=== PATIENT | female | born 2000 | race Caucasian/White ===

== ENCOUNTER 2020-04-07 00:20 | Emergency (ER) | payer OTHER ==
[2020-04-07 00:28] VITALS: TEMP 98.9
[2020-04-07] MEDS ORDERED: ONDANSETRON 4 MG/2 ML VIAL IVP STA (00:50)
[2020-04-07] MEDS ORDERED: SODIUM CHLORIDE 0.9% 1,000 ML IV ONE (00:50)
[2020-04-07] MEDS ORDERED: KETOROLAC 15 MG/ML 1 ML VIAL IVP STA (00:50)
--- NOTE | 2020-04-07 01:27 | US ---
EXAM: US Pelvis Transabdominal and Transvaginal, Complete and US Duplex Arterial/Venous of the Pelvis, Complete CLINICAL HISTORY: ITS.REASON US Reason: Left pelvic pain; IUD TECHNIQUE: Real-time complete transabdominal and transvaginal pelvic ultrasound with image documentation. Transvaginal imaging was used for better evaluation of the endometrium and adnexa. Real-time duplex ultrasound scan of the arterial and venous flow of the pelvis with color Doppler flow and spectral waveform analysis. COMPARISON: No relevant prior studies available. FINDINGS: Uterus/cervix: There is an IUD within the uterus. The endometrial stripe is normal measuring 2 mm. The uterus measures 7 x 3.4 x 3.6 cm, 44.8 mL No myometrial mass. Right ovary: The right ovary measures 2.2 x 1.5 x 1.8 cm, 3 mL. Doppler blood flow is normal. There is a 1.2 cm follicle within the right ovary. Left ovary: The left ovary measures 2.2 x 1.3 x 1.2 cm, 1.8 mL. No torsion. Free fluid: There is a trace amount of free fluid within the cul-de- sac which is within normal limits. Bladder: Unremarkable as visualized. Wall is normal thickness for degree of distention. IMPRESSION: There is an IUD within the uterus. The endometrial stripe is normal measuring 2 mm. The myometrium and ovaries appear within normal limits. There is a trace amount of free fluid in the cul-de-sac.
[2020-04-07 01:43] LABS: Appearance,Urine Clear (Clear); Bilirubin,Urine Negative (Negative); Blood,Urine Trace (Negative); Color,Urine Yellow; Glucose,Urine (UA) Negative (Negative); Ketones,Urine Negative (Negative); Leukocyte Esterase,Urine Negative (Negative); Nitrite,Urine Negative (Negative); Protein,Urine Negative (Negative); Specific Gravity,Urine 1.014 (1.001-1.035); Urobilinogen,Urine <2.0 mg/dL (<2.0)
[2020-04-07 01:44] LABS: Mucus,Urine Rare /hpf; RBC,Urine 2 /hpf (0-5); Squamous Epithelial Cell,Urine <1 /hpf (0-4)
[2020-04-07 01:45] LABS: Basophils # (A) 0.1 k/uL (0-0.2); Basophils % (A) 1 %; Eosinophils # (A) 0.3 k/uL (0-0.7); Eosinophils % (A) 6 %; HCT 42.2 % (34.0-46.0); Lymphocytes # (A) 2.2 k/uL (1.0-4.8); Lymphocytes % (A) 36 %; MCHC 35.5 g/dL (31.0-37.0); MCV 92.9 fL (80.0-100.0); Mean Platelet Volume 7.3; Monocytes # (A) 0.3 k/uL (0-1.0); Monocytes % (A) 5 %; Neutrophils # (A) 3.1 k/uL (1.3-7.7); Neutrophils % (A) 51 %; Platelet Count 256 k/uL (150-450); RBC 4.54 m/uL (3.80-5.40); RDW 11.8 % (11.5-15.5); WBC 6.2 k/uL (3.8-10.6)
[2020-04-07 01:51] LABS: ALT 14 U/L (4-34); AST 22 U/L (14-36); African American GFR (CKD) >90 (>60 ml/min/1.73 sqM); Albumin 4.3 g/dL (3.5-5.0); Alkaline Phosphatase 49 U/L (38-126); Anion Gap 6 mmol/L; Blood Urea Nitrogen 10 mg/dL (7-17); Calcium 9.3 mg/dL (8.4-10.2); Carbon Dioxide 32 mmol/L (22-30); Chloride 100 mmol/L (98-107); Glucose 101 mg/dL (74-99); Non-African American GFR(CKD) >90 (>60 ml/min/1.73 sqM); Potassium 3.9 mmol/L (3.5-5.1); Sodium 138 mmol/L (137-145); Total Bilirubin 0.4 mg/dL (0.2-1.3); Total Protein 7.2 g/dL (6.3-8.2)
--- NOTE | 2020-04-07 01:53 | ED ---
Abdominal Pain HPI - General Chief Complaint: Abdominal Pain Stated Complaint: abd pain Time Seen by Provider: 04/07/20 00:38 Source: patient, family Mode of arrival: ambulatory Limitations: no limitations - History of Present Illness Initial Comments: 20-year-old female patient presents to the emergency department today for evaluation of left-sided abdominal pain. States the pain radiates from the left groin up into the left lower ribs. States that the pain has been occurring intermittently over the last few months. States that she also has been having irregular vaginal bleeding for the same amount of time. States she did have an IUD (Kyleena) placed in October 2019. She did take a test last Friday which was negative. States that the pain today became intense and more sharp than usual so she presented here for further evaluation. States she did become nauseated almost vomited on the ride here. She denies any fever or chills. States she did have an episode of diarrhea today. Denies any hematochezia or melena. Denies any hematuria, dysuria, urinary frequency, urinary urgency. Patient denies any recent rash, cough, shortness of breath, chest pain, back pain, numbness, tingling, dizziness, weakness, headache, visual changes, or any other complaints. - Related Data Allergies Allergy/AdvReac Type Severity Reaction Status Date / Time No Known Allergies Allergy Verified 04/07/20 00:28 Review of Systems ROS Statement: Those systems with pertinent positive or pertinent negative responses have been documented in the HPI. ROS Other: All systems not noted in ROS Statement are negative. Past Medical History Past Medical History: No Reported History History of Any Multi-Drug Resistant Organisms: None Reported Past Surgical History: No Surgical Hx Reported Past Psychological History: Anxiety, Bipolar, Depression Smoking Status: Vaper Past Alcohol Use History: None Reported Past Drug Use History: None Reported General Exam Limitations: no limitations General appearance: alert, in no apparent distress, other (This is a well- developed, well-nourished adult female patient in no acute distress. Vital signs upon presentation are temperature 98.9F, pulse 76, respirations 20, blood pressure 118/80, pulse ox 98% on room air.) Eye exam: Present: normal appearance, PERRL, EOMI. Absent: scleral icterus, conjunctival injection, periorbital swelling Respiratory exam: Present: normal lung sounds bilaterally. Absent: respiratory distress, wheezes, rales, rhonchi, stridor Cardiovascular Exam: Present: regular rate, normal rhythm, normal heart sounds. Absent: systolic murmur, diastolic murmur, rubs, gallop, clicks GI/Abdominal exam: Present: soft, tenderness (LLQ), normal bowel sounds. Absent: distended, guarding, rebound, rigid External exam: Present: normal external exam Speculum exam: Present: vaginal bleeding (Mild dark red), other (Cervix closed, no erythema or friability). Absent: cervical discharge By manual exam: Present: adnexal tenderness (Left). Absent: cervical motion tenderness, uterine enlargement, uterine tenderness Neurological exam: Present: alert, oriented X3, CN II-XII intact Psychiatric exam: Present: normal affect, normal mood Skin exam: Present: warm, dry, intact, normal color. Absent: rash Course Vital Signs 04/07/20 00:23 Temperature 98.9 F Pulse Rate 76 Respiratory 20 Rate Blood Pressure 118/80 O2 Sat by Pulse 98 Oximetry Medical Decision Making - Medical Decision Making 20-year-old female patient presents to the emergency department today for evaluation of left-sided abdominal pain mostly over the left pelvic region. Physical examination did reveal left-sided abdominal tenderness. Pelvic exam was performed and showed a mild amount of vaginal bleeding. Normal cervix. There is left adnexal tenderness. Labs reviewed and were unremarkable. HCG was negative. Urinalysis shows no sign of infection. Ultrasound was obtained and was unremarkable. We did discuss symptoms could be related to the hormonal changes related to her IUD. She is instructed to call her or we did an first thing in the morning to discuss symptoms and to get further instructions written she's also instructed to follow-up with her primary care physician for recheck in 1-2 days to evaluate further causes for abdominal pain. Return parameters were discussed in detail. She verbalizes understanding and agrees with this plan. - Lab Data Result diagrams: 04/07/20 00:50 04/07/20 00:50 Lab Results 04/07/20 04/07/20 04/07/20 Range/Units 00:50 00:50 00:50 WBC 6.2 (3.8-10.6) k/uL RBC 4.54 (3.80-5.40) m/uL Hgb 15.0 (11.4-16.0) gm/dL Hct 42.2 (34.0-46.0) % MCV 92.9 (80.0-100.0) fL MCH 33.0 (25.0-35.0) pg MCHC 35.5 (31.0-37.0) g/dL RDW 11.8 (11.5-15.5) % Plt Count 256 (150-450) k/uL MPV 7.3 Neutrophils % 51 % Lymphocytes % 36 % Monocytes % 5 % Eosinophils % 6 % Basophils % 1 % Neutrophils # 3.1 (1.3-7.7) k/uL Lymphocytes # 2.2 (1.0-4.8) k/uL Monocytes # 0.3 (0-1.0) k/uL Eosinophils # 0.3 (0-0.7) k/uL Basophils # 0.1 (0-0.2) k/uL Sodium (137-145) mmol/L Potassium (3.5-5.1) mmol/L Chloride (98-107) mmol/L Carbon Dioxide (22-30) mmol/L Anion Gap mmol/L BUN (7-17) mg/dL Creatinine (0.52-1.04) mg/dL Est GFR (CKD-EPI)AfAm (>60 ml/min/1.73 sqM) Est GFR (CKD-EPI)NonAf (>60 ml/min/1.73 sqM) Glucose (74-99) mg/dL Calcium (8.4-10.2) mg/dL Total Bilirubin (0.2-1.3) mg/dL AST (14-36) U/L ALT (4-34) U/L Alkaline Phosphatase (38-126) U/L Total Protein (6.3-8.2) g/dL Albumin (3.5-5.0) g/dL Urine Color Yellow Urine Appearance Clear (Clear) Urine pH 7.0 (5.0-8.0) Ur Specific [place] 1.014 (1.001-1.035) Urine Protein Negative (Negative) Urine Glucose (UA) Negative (Negative) Urine Ketones Negative (Negative) Urine Blood Trace H (Negative) Urine Nitrite Negative (Negative) Urine Bilirubin Negative (Negative) Urine Urobilinogen <2.0 (<2.0) mg/dL Ur Leukocyte Esterase Negative (Negative) Urine RBC 2 (0-5) /hpf Ur Squamous Epith Cells <1 (0-4) /hpf Urine Mucus Rare H (None) /hpf Urine HCG, Qual Not Detected (Not Detectd) 04/07/20 Range/Units 00:50 WBC (3.8-10.6) k/uL RBC (3.80-5.40) m/uL Hgb (11.4-16.0) gm/dL Hct (34.0-46.0) % MCV (80.0-100.0) fL MCH (25.0-35.0) pg MCHC (31.0-37.0) g/dL RDW (11.5-15.5) % Plt Count (150-450) k/uL MPV Neutrophils % % Lymphocytes % % Monocytes % % Eosinophils % % Basophils % % Neutrophils # (1.3-7.7) k/uL Lymphocytes # (1.0-4.8) k/uL Monocytes # (0-1.0) k/uL Eosinophils # (0-0.7) k/uL Basophils # (0-0.2) k/uL Sodium 138 (137-145) mmol/L Potassium 3.9 (3.5-5.1) mmol/L Chloride 100 (98-107) mmol/L Carbon Dioxide 32 H (22-30) mmol/L Anion Gap 6 mmol/L BUN 10 (7-17) mg/dL Creatinine 0.65 (0.52-1.04) mg/dL Est GFR (CKD-EPI)AfAm >90 (>60 ml/min/1.73 sqM) Est GFR (CKD-EPI)NonAf >90 (>60 ml/min/1.73 sqM) Glucose 101 H (74-99) mg/dL Calcium 9.3 (8.4-10.2) mg/dL Total Bilirubin 0.4 (0.2-1.3) mg/dL AST 22 (14-36) U/L ALT 14 (4-34) U/L Alkaline Phosphatase 49 (38-126) U/L Total Protein 7.2 (6.3-8.2) g/dL Albumin 4.3 (3.5-5.0) g/dL Urine Color Urine Appearance (Clear) Urine pH (5.0-8.0) Ur Specific [place] (1.001-1.035) Urine Protein (Negative) Urine Glucose (UA) (Negative) Urine Ketones (Negative) Urine Blood (Negative) Urine Nitrite (Negative) Urine Bilirubin (Negative) Urine Urobilinogen (<2.0) mg/dL Ur Leukocyte Esterase (Negative) Urine RBC (0-5) /hpf Ur Squamous Epith Cells (0-4) /hpf Urine Mucus (None) /hpf Urine HCG, Qual (Not Detectd) - Radiology Data Radiology results: report reviewed, image reviewed Ultrasound is obtained. Report is reviewed in its entirety. Impression by Dr. Hernandez shows IUD within the uterus. Endometrial stripe is normal measuring 2 mm. The myometrium and ovaries appear within normal limits. There is a trace amount of free fluid in the cul-de-sac. Disposition Clinical Impression: Abdominal pain, Dysfunctional uterine bleeding Disposition: HOME SELF-CARE Condition: Good Instructions (If sedation given, give patient instructions): Dysfunctional Uterine Bleeding (ED), Abdominal Pain (ED) Additional Instructions: Follow-up with the primary care physician for recheck in 1-2 days. Call your SYSTEM ADMINISTRATION MANAGER first thing in the morning to discuss her symptoms and get further instructions. Take home medication for pain as needed. Return to the emergency department for any new, worsening, or concerning symptoms. Is patient prescribed a controlled substance at d/c from ED?: No Referrals: None,Stated [Primary Care Provider] - 1-2 days Time of Disposition: 02:02
[2020-04-07 02:23] VITALS: BP 100/89; PULSE 73; RESP 19
== END 2020-04-07 02:23 | disposition home or self-care (01) ==
LOC: EC 00:20
DX: N93.8 Other specified abnormal uterine and vaginal bleeding (principal); F17.290 Nicotine dependence, other tobacco product, uncomplicated
CPT/HCPCS: 36415; 80053; 85025; 81001; 81025; 93975; 76830; 99284; 96374; 96375; 96361; J2405; J1885

== ENCOUNTER 2020-08-22 08:09 | Day surgery (SDC) | payer OTHER ==
[2020-08-18 14:45] VITALS: BMI 23.9
[~2020-08-22 08:09] MED LIST: SODIUM CHLORIDE 0.9% 1,000 ML IV SCH
[2020-08-22 08:38] VITALS: BP 119/75; PULSE 68; RESP 18; TEMP 98.4
--- NOTE | 2020-08-22 15:42 | P.EPPROC ---
- EP Procedure Note Electrophysiology Procedure Note: Diagnosis Recurrent presyncope and syncope Twelve-lead EKG shows sinus rhythm normal FL narrow QRS normal ST segments, early repolarization abnormality Normal QT interval no delta waves no epsilon waves Normal ST segments the precordial leads Tilt table test per protocol Baseline blood pressure 107/68 mmHg, Baseline heart rate 50 beats a minute Patient was tilted upright at an angle of 70 per protocol. She immediately felt dizzy but there was no drop in her blood pressure nor any change in her heart rate Thereafter blood pressure and heart rate remained stable No further symptoms noted At the end of the Z she was laid supine Impression Normal twelve-lead EKG Normal heart rate and blood pressure response to upright tilting
== END 2020-08-22 10:26 | disposition home or self-care (01) ==
LOC: CATHEP 08:09
PROVIDERS: ATTEND Internal Medicine Clinical Cardiac Electrophysiology
DX: R55 Syncope and collapse (principal); Z82.49 Family history of ischemic heart disease and other diseases of the circulatory system; F17.290 Nicotine dependence, other tobacco product, uncomplicated; Z20.822 Contact with and (suspected) exposure to COVID-19
CPT/HCPCS: 81025; 87635; 93660

== ENCOUNTER → 2020-09-12 | Outpatient (CLI) | payer OTHER ==
--- NOTE | 2020-09-12 16:58 | MR ---
EXAMINATION TYPE: MR brain wo/w con DATE OF EXAM: 09/12/2020 COMPARISON: NONE HISTORY: 20-year-old female R51.9, nonspecific headache. Episodes of passing out for almost 12 years but now with increasing frequency, nausea, dizziness, and sometimes vomiting after episodes. TECHNIQUE: Multiplanar, multisequence images of the brain and brainstem were acquired before and aft er administration of 5.5 mL IV Gadavist. Diffusion weighted imaging is performed. FINDINGS: No evidence for acute infarction, hemorrhage, mass, mass effect, midline shift, herniation, effacemen t of basal cisterns, or extra-axial fluid collection. The ventricles and sulci are age-appropriate. Major intracranial flow voids are intact. T2/FLAIR weighted sequences show no white matter signal abnormality. Midline structures demonstrate normal morphology. The craniocervical junction is normal. Post contrast images demonstrate no evidence of pathologic enhancement. Dural venous sinuses are pat ent. Mild bilateral palatine tonsillar hypertrophy partially seen. Trace mucosal thickening ethmoid air ce lls and maxillary sinuses. Globes appear intact. IMPRESSION: No intracranial abnormality seen. Mild chronic ethmoid and maxillary sinus disease.
== END | disposition home or self-care (01) ==
LOC: RADMRIMAIN 14:38
PROVIDERS: ATTEND Family Medicine
DX: R51.9 Headache, unspecified (principal); R11.2 Nausea with vomiting, unspecified; R42 Dizziness and giddiness
CPT/HCPCS: 70553; A9585

== ENCOUNTER 2021-04-17 17:13 | Emergency (ER) | payer OTHER ==
[2021-04-17 17:20] VITALS: RESP 18; TEMP 98.9
[2021-04-17] MEDS ORDERED: SODIUM CHLORIDE 0.9% 1,000 ML IV STA (18:01)
--- NOTE | 2021-04-17 18:08 | ED ---
General Adult HPI - General Chief complaint: Seizure Stated complaint: Seizure Time Seen by Provider: 04/17/21 17:32 Source: patient Mode of arrival: EMS Limitations: no limitations - History of Present Illness Initial comments: This 21-year-old female with a history of mouth teeth seizures presents to the emergency department after having a seizure while at the eye doctor earlier today. Patient states she has been getting seizure workup by Dr. Wagoner and neuro doctor that she cannot remember her name for over the last year. Patient states she has not been completely diagnosed with seizure disorder but that his blood her neurologist is leaning towards. Patient states she is not currently on any medications But states she does have a follow-up appointment with her neurologist next week and an appointment with her primary care doctor tomorrow. Patient states her last seizure was 2 days ago. Patient states some week she has no seizures and other she has one every other day. Patient states she usually doesn't remember her seizures but is described by her eyes rolling back in her being "out of it" for a couple minutes. Patient does not remember the seizure her eye doctor appointment and does not know if she hit her head. Patient states she is now just tired and has a mild headache with some nausea. Patient denies any chest pain, shortness of breath, vomiting, biting her tongue, losing bowel or bladder, change in vision, one-sided weakness. - Related Data Home Medications Medication Instructions Recorded Confirmed Albuterol Sulfate [Proair Hfa] 2 puff INHALATION RT-Q6H PRN 04/17/21 04/17/21 Dextroamphetamine/Amphetamine 10 mg PO DAILY 04/17/21 04/17/21 [Adderall Xr] Naproxen 500 mg PO BID PRN 04/17/21 04/17/21 Allergies Allergy/AdvReac Type Severity Reaction Status Date / Time No Known Allergies Allergy Verified 04/17/21 18:48 Review of Systems ROS Statement: Those systems with pertinent positive or pertinent negative responses have been documented in the HPI. ROS Other: All systems not noted in ROS Statement are negative. Past Medical History Past Medical History: No Reported History Additional Past Medical History / Comment(s): fainting spells for approx. 10 years. [place] Palsy during last trimester. See Dr. Felix's H&P. History of Any Multi-Drug Resistant Organisms: None Reported Past Surgical History: No Surgical Hx Reported Additional Past Surgical History / Comment(s): [place] teeth Additional Past Anesthesia/Blood Transfusion Reaction / Comment(s): Has never had anesthesia. Past Psychological History: Anxiety, Depression Smoking Status: Current every day smoker, Vaper Past Alcohol Use History: None Reported Past Drug Use History: None Reported - Past Family History Mother Family Medical History: Cancer Additional Family Medical History / Comment(s): Cervical General Exam Limitations: no limitations General appearance: alert, in no apparent distress Head exam: Present: atraumatic, normocephalic, normal inspection Eye exam: Present: normal appearance, PERRL, EOMI Pupils: Present: normal accommodation ENT exam: Present: normal exam, mucous membranes moist Neck exam: Present: full ROM Respiratory exam: Present: normal lung sounds bilaterally. Absent: respiratory distress, wheezes, rales, rhonchi, stridor Cardiovascular Exam: Present: regular rate, normal rhythm, normal heart sounds. Absent: systolic murmur, diastolic murmur, rubs, gallop, clicks GI/Abdominal exam: Present: soft, normal bowel sounds. Absent: distended, te nderness, guarding, rebound, rigid Extremities exam: Present: full ROM Back exam: Present: normal inspection. Absent: tenderness, CVA tenderness (R), CVA tenderness (L), paraspinal tenderness, vertebral tenderness Neurological exam: Present: alert, oriented X3 (Patient has her name, the date, the year, the president, where she is at. She able to perform finger to nose 6 cardinal signs of gaze), CN II-XII intact Psychiatric exam: Present: normal affect, normal mood Skin exam: Present: warm, dry, intact, normal color. Absent: rash Course Vital Signs 04/17/21 04/17/21 17:15 19:24 Temperature 98.9 F Pulse Rate 68 80 Respiratory 18 18 Rate Blood Pressure 112/69 126/97 O2 Sat by Pulse 100 100 Oximetry - Reevaluation(s) Reevaluation #1: 04/17/21 20:07 Patient currently does not have a headache and does feel better. Patient states she is just tired. Medical Decision Making - Medical Decision Making This 21-year-old female presents to the emergency department with a possible petit mal seizure at her eye doctor appointment today. Patient has been sowed similar to this weekly and states she is in the process of getting a seizure disorder diagnosis along with seizure medication prescription. Labs un remarkable. Brain CT with no acute intracranial process. Patient has follow-up appointment with her primary care tomorrow and has follow-up with her neurology next week. Patient states she will call tomorrow to she can move the appointment to sooner. Strict return precautions were discussed. Patient agreed to have a follow-up with her neurologist and primary care in the next 24- 48 hours. Patient form she cannot drive and states she hurt he does not drive due to the possible seizures. Patient verbally agreed to plan. Patient sent home in stable condition. Case discussed with the attending, Dr. Marley - Lab Data Result diagrams: 04/17/21 18:10 04/17/21 18:10 Lab Results 04/17/21 04/17/21 04/17/21 Range/Units 18:10 18:10 18:10 WBC 4.7 (3.8-10.6) k/uL RBC 4.69 (3.80-5.40) m/uL Hgb 15.0 (11.4-16.0) gm/dL Hct 44.4 (34.0-46.0) % MCV 94.7 (80.0-100.0) fL MCH 31.9 (25.0-35.0) pg MCHC 33.7 (31.0-37.0) g/dL RDW 12.2 (11.5-15.5) % Plt Count 272 (150-450) k/uL MPV 7.5 Neutrophils % 51 % Lymphocytes % 38 % Monocytes % 5 % Eosinophils % 4 % Basophils % 1 % Neutrophils # 2.4 (1.3-7.7) k/uL Lymphocytes # 1.8 (1.0-4.8) k/uL Monocytes # 0.2 (0-1.0) k/uL Eosinophils # 0.2 (0-0.7) k/uL Basophils # 0.0 (0-0.2) k/uL Sodium 139 (137-145) mmol/L Potassium 3.9 (3.5-5.1) mmol/L Chloride 104 (98-107) mmol/L Carbon Dioxide 26 (22-30) mmol/L Anion Gap 9 mmol/L BUN 11 (7-17) mg/dL Creatinine 0.62 (0.52-1.04) mg/dL Est GFR (CKD-EPI)AfAm >90 (>60 ml/min/1.73 sqM) Est GFR (CKD-EPI)NonAf >90 (>60 ml/min/1.73 sqM) Glucose 94 (74-99) mg/dL POC Glucose (mg/dL) (75-99) mg/dL POC Glu Book Sewing Machine Operator ID Calcium 9.3 (8.4-10.2) mg/dL Magnesium (1.6-2.3) mg/dL Total Bilirubin 0.7 (0.2-1.3) mg/dL AST 20 (14-36) U/L ALT 12 (4-34) U/L Alkaline Phosphatase 66 (38-126) U/L Total Protein 7.1 (6.3-8.2) g/dL Albumin 4.2 (3.5-5.0) g/dL Urine Color Light Yellow Urine Appearance Clear (Clear) Urine pH 7.0 (5.0-8.0) Ur Specific [place] 1.006 (1.001-1.035) Urine Protein Negative (Negative) Urine Glucose (UA) Negative (Negative) Urine Ketones Negative (Negative) Urine Blood Small H (Negative) Urine Nitrite Negative (Negative) Urine Bilirubin Negative (Negative) Urine Urobilinogen <2.0 (<2.0) mg/dL Ur Leukocyte Esterase Negative (Negative) Urine WBC 1 (0-5) /hpf Ur Squamous Epith Cells 1 (0-4) /hpf Urine Bacteria Rare H (None) /hpf Urine Opiates Screen (NotDetected) Ur Oxycodone Screen (NotDetected) Urine Methadone Screen (NotDetected) Ur Propoxyphene Screen (NotDetected) Ur Barbiturates Screen (NotDetected) U Tricyclic Antidepress (NotDetected) Ur Phencyclidine Scrn (NotDetected) Ur Amphetamines Screen (NotDetected) U Methamphetamines Scrn (NotDetected) U Benzodiazepines Scrn (NotDetected) Urine Cocaine Screen (NotDetected) U Marijuana (THC) Screen (NotDetected) 04/17/21 04/17/21 04/17/21 Range/Units 18:10 18:10 19:02 WBC (3.8-10.6) k/uL RBC (3.80-5.40) m/uL Hgb (11.4-16.0) gm/dL Hct (34.0-46.0) % MCV (80.0-100.0) fL MCH (25.0-35.0) pg MCHC (31.0-37.0) g/dL RDW (11.5-15.5) % Plt Count (150-450) k/uL MPV Neutrophils % % Lymphocytes % % Monocytes % % Eosinophils % % Basophils % % Neutrophils # (1.3-7.7) k/uL Lymphocytes # (1.0-4.8) k/uL Monocytes # (0-1.0) k/uL Eosinophils # (0-0.7) k/uL Basophils # (0-0.2) k/uL Sodium (137-145) mmol/L Potassium (3.5-5.1) mmol/L Chloride (98-107) mmol/L Carbon Dioxide (22-30) mmol/L Anion Gap mmol/L BUN (7-17) mg/dL Creatinine (0.52-1.04) mg/dL Est GFR (CKD-EPI)AfAm (>60 ml/min/1.73 sqM) Est GFR (CKD-EPI)NonAf (>60 ml/min/1.73 sqM) Glucose (74-99) mg/dL POC Glucose (mg/dL) 75 (75-99) mg/dL POC Glu Book Sewing Machine Operator ID Emmie Adam Calcium (8.4-10.2) mg/dL Magnesium 1.8 (1.6-2.3) mg/dL Total Bilirubin (0.2-1.3) mg/dL AST (14-36) U/L ALT (4-34) U/L Alkaline Phosphatase (38-126) U/L Total Protein (6.3-8.2) g/dL Albumin (3.5-5.0) g/dL Urine Color Urine Appearance (Clear) Urine pH (5.0-8.0) Ur Specific [place] (1.001-1.035) Urine Protein (Negative) Urine Glucose (UA) (Negative) Urine Ketones (Negative) Urine Blood (Negative) Urine Nitrite (Negative) Urine Bilirubin (Negative) Urine Urobilinogen (<2.0) mg/dL Ur Leukocyte Esterase (Negative) Urine WBC (0-5) /hpf Ur Squamous Epith Cells (0-4) /hpf Urine Bacteria (None) /hpf Urine Opiates Screen Not Detected (NotDetected) Ur Oxycodone Screen Not Detected (NotDetected) Urine Methadone Screen Not Detected (NotDetected) Ur Propoxyphene Screen Not Detected (NotDetected) Ur Barbiturates Screen Not Detected (NotDetected) U Tricyclic Antidepress Not Detected (NotDetected) Ur Phencyclidine Scrn Not Detected (NotDetected) Ur Amphetamines Screen Detected H (NotDetected) U Methamphetamines Scrn Not Detected (NotDetected) U Benzodiazepines Scrn Not Detected (NotDetected) Urine Cocaine Screen Not Detected (NotDetected) U Marijuana (THC) Screen Not Detected (NotDetected) Disposition Clinical Impression: Seizure disorder Disposition: HOME SELF-CARE Condition: Stable Instructions (If sedation given, give patient instructions): Recurrent Seizures in Adults (ED) Additional Instructions: Please follow-up with your primary care provider and neurologist in next 24-48 hours. Please return to the emergency department with any concerning, new, worsening symptoms. Is patient prescribed a controlled substance at d/c from ED?: No Referrals: Matthias Wagoner DO [Primary Care Provider] - 1-2 days Time of Disposition: 20:00
[2021-04-17 18:21] LABS: Basophils % (A) 1 %; Eosinophils # (A) 0.2 k/uL (0-0.7); Eosinophils % (A) 4 %; HCT 44.4 % (34.0-46.0); Lymphocytes # (A) 1.8 k/uL (1.0-4.8); Lymphocytes % (A) 38 %; MCH 31.9 pg (25.0-35.0); MCHC 33.7 g/dL (31.0-37.0); MCV 94.7 fL (80.0-100.0); Mean Platelet Volume 7.5; Monocytes # (A) 0.2 k/uL (0-1.0); Monocytes % (A) 5 %; Neutrophils # (A) 2.4 k/uL (1.3-7.7); Neutrophils % (A) 51 %; Platelet Count 272 k/uL (150-450); RBC 4.69 m/uL (3.80-5.40); RDW 12.2 % (11.5-15.5); WBC 4.7 k/uL (3.8-10.6)
[2021-04-17 18:29] LABS: ALT 12 U/L (4-34); AST 20 U/L (14-36); African American GFR (CKD) >90 (>60 ml/min/1.73 sqM); Albumin 4.2 g/dL (3.5-5.0); Alkaline Phosphatase 66 U/L (38-126); Anion Gap 9 mmol/L; Blood Urea Nitrogen 11 mg/dL (7-17); Calcium 9.3 mg/dL (8.4-10.2); Carbon Dioxide 26 mmol/L (22-30); Chloride 104 mmol/L (98-107); Glucose 94 mg/dL (74-99); Non-African American GFR(CKD) >90 (>60 ml/min/1.73 sqM); Potassium 3.9 mmol/L (3.5-5.1); Sodium 139 mmol/L (137-145); Total Bilirubin 0.7 mg/dL (0.2-1.3); Total Protein 7.1 g/dL (6.3-8.2)
[2021-04-17 18:56] LABS: Amphetamine Screen,Urine Detected (NotDetected); Barbiturate Screen,Urine Not Detected (NotDetected); Benzodiazepines Screen,Urine Not Detected (NotDetected); Cocaine Screen,Urine Not Detected (NotDetected); Methadone Screen, Urine Not Detected (NotDetected); Opiate Screen,Urine Not Detected (NotDetected); Oxycodone Screen, Urine Not Detected (NotDetected); Phencyclidine Screen,Urine Not Detected (NotDetected); Tricyclic Antidepressant,Urine Not Detected (NotDetected); Urn Cannabinoid Scrn Not Detected (NotDetected)
[2021-04-17 18:58] LABS: Appearance,Urine Clear (Clear); Bacteria,Urine Rare /hpf; Bilirubin,Urine Negative (Negative); Blood,Urine Small (Negative); Color,Urine Light Yellow; Glucose,Urine (UA) Negative (Negative); Ketones,Urine Negative (Negative); Leukocyte Esterase,Urine Negative (Negative); Nitrite,Urine Negative (Negative); Protein,Urine Negative (Negative); Specific Gravity,Urine 1.006 (1.001-1.035); Squamous Epithelial Cell,Urine 1 /hpf (0-4); Urobilinogen,Urine <2.0 mg/dL (<2.0); WBC,Urine 1 /hpf (0-5)
[2021-04-17 19:03] LABS: Glucose,Whole Blood 75 mg/dL (75-99)
[2021-04-17 19:26] VITALS: BP 126/97; PULSE 80
--- NOTE | 2021-04-17 19:28 | CT ---
EXAMINATION TYPE: CT brain wo con CT DLP: 1066.4 mGycm, Automated exposure control for dose reduction was used. DATE OF EXAM: 04/17/2021 6:49 PM COMPARISON: MR brain 09/12/2020. CLINICAL INDICATION:Female, 21 years old with history of seizure activity, seizure TECHNIQUE: Brain: Multiple axial CT images of the brain were obtained without IV contrast. FINDINGS: Brain: Extra-axial spaces: No abnormal extra-axial fluid collections. Ventricular system: Within normal limits Cerebral parenchyma: No acute intraparenchymal hemorrhage or mass effect. The pedraza-white junction is well differentiated. Cerebellum: Unremarkable. Mass effect: No evidence of midline shift. Intracranial vasculature: unremarkable Soft tissues: Normal. Calvarium/osseous structures: No depressed skull fracture. Paranasal sinuses and mastoid air cells: Clear. Visualized orbits: Orbital contents are intact. IMPRESSION: No acute intracranial process.
== END 2021-04-17 20:40 | disposition home or self-care (01) ==
LOC: EC 17:13
DX: G40.909 Epilepsy, unspecified, not intractable, without status epilepticus (principal); F41.9 Anxiety disorder, unspecified; F32.A Depression, unspecified; F17.200 Nicotine dependence, unspecified, uncomplicated
CPT/HCPCS: 36415; 70450; 80053; 80306; 81001; 83735; 85025; 99285

== ENCOUNTER → 2021-09-11 | Outpatient (CLI) | payer OTHER ==
--- NOTE | 2021-09-11 17:48 | CT ---
EXAMINATION TYPE: CT angio chest DATE OF EXAM: 09/11/2021 COMPARISON: None HISTORY: poss PE. SOB x [address] DLP: 154.10 mGycm Automated exposure control for dose reduction was used. CONTRAST: Performed with IV Contrast, patient injected with 54 mL of Isovue 370. There are Three-D postprocessed images. The lungs are clear of infiltrate. No pleural effusion. No evidence of a pulmonary mass. Heart size i s normal. No pericardial effusion. There is no mediastinal adenopathy. There are no hilar masses. There is normal contrast opacification of the pulmonary arteries. No filling defect. The thoracic spine is intact. No compression fracture. Sternum is intact. Upper abdominal soft tissue s are intact. IMPRESSION: Negative exam. No evidence of pulmonary embolism.
== END | disposition home or self-care (01) ==
LOC: RADCTMAIN 15:52
PROVIDERS: ATTEND Family Medicine
DX: R06.02 Shortness of breath (principal)
CPT/HCPCS: 71275; Q9967